=== PATIENT | female | born 2005 | race Caucasian/White ===

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

== ENCOUNTER → 2024-02-10 | Outpatient (CLI) | payer OTHER | END | disposition home or self-care (01) | LOC: LABPRL 14:30 | PROVIDERS: ATTEND Nurse Practitioner Family | DX: Z00.00 Encounter for general adult medical examination without abnormal findings (principal); E55.9 Vitamin D deficiency, unspecified | CPT/HCPCS: 80053; 82306; 83036; 84439; 84443; 85025 ==

== ENCOUNTER → 2024-05-31 | Outpatient (CLI) | payer BC ==
[2024-05-31 19:08] LABS: Basophils # (A) 0.03 X 10*3/uL (0.00-0.10); Basophils % (A) 0.3 %; Eosinophils % (A) 1.1 %; HCT 43.1 % (37.2-46.3); HGB 14.3 g/dL (12.0-15.0); Lymphocytes # (A) 2.65 X 10*3/uL (0.90-5.00); Lymphocytes % (A) 30.4 %; MCH 29.6 pg (27.0-32.0); MCHC 33.2 g/dL (32.0-37.0); MCV 89.2 FL (80.0-97.0); Mean Platelet Volume 9.6 FL (9.5-12.2); Monocytes # (A) 0.67 X 10*3/uL (0.20-1.00); Monocytes % (A) 7.7 %; NRBC Per 100 WBC 0 X 10*3/uL (0.00-0.01); Neutrophils # (A) 5.24 X 10*3/uL (1.80-7.70); Neutrophils % (A) 60.3 %; Platelet Count 389 X 10*3/uL (140-440); RBC 4.83 X 10*6/uL (4.10-5.20); WBC 8.71 X 10*3/uL (4.50-10.00)
[2024-05-31 20:45] LABS: ALT 21 U/L (8-44); AST 22 U/L (13-35); Albumin 4.8 g/dL (3.8-4.9); Albumin/Globulin Ratio 1.92 Ratio (1.60-3.17); Alkaline Phosphatase 102 U/L (41-126); Blood Urea Nitrogen 6.3 mg/dL (9.0-27.0); Calcium 9.9 mg/dL (8.7-10.3); Carbon Dioxide 27.8 mmol/L (21.6-31.8); Chloride 101 mmol/L (96-109); Globulin 2.5 g/dL (1.6-3.3); Glucose 80 mg/dL (70-110); Potassium 4.3 mmol/L (3.5-5.5); Sodium 141 mmol/L (135-145); Total Bilirubin 0.3 mg/dL (0.3-1.2); Total Protein 7.3 g/dL (6.2-8.2)
== END | disposition home or self-care (01) ==
LOC: LABWHC1 14:17
PROVIDERS: ATTEND Family Medicine
DX: Z00.00 Encounter for general adult medical examination without abnormal findings (principal); E55.9 Vitamin D deficiency, unspecified
CPT/HCPCS: 36415; 80053; 82306; 83036; 84439; 84443; 85025